=== PATIENT | male | born 1980 | race Caucasian/White ===

== ENCOUNTER 2019-05-03 06:13 | Day surgery (SDC) | payer OTHER ==
[2019-04-28 12:10] VITALS: BMI 30.1
[2019-05-03] MEDS ORDERED: Thrombin 5000 UNITS/5 ML VIAL ONE (08:06)
[2019-05-03] MEDS ORDERED: Midazolam HCl 2 mg/2 ml Vial ONE (08:33)
[2019-05-03] MEDS ORDERED: Fentanyl 250 MCG/5 ML VIAL ONE (08:33)
[2019-05-03] MEDS ORDERED: Tamsulosin HCl 0.4 MG CAP ONE (10:31)
[2019-05-03] MEDS ORDERED: HYDROcodone/Acetaminophen 5/325 mg Tablet ONE (11:20)
--- NOTE | 2019-05-03 12:13 | OP ---
DATE OF PROCEDURE: 05/03/2019 HOT TOP LINER: Jackson Rodríguez PA-C. INDICATION: Pain. DIAGNOSIS: Cervical radiculopathy. PROCEDURE PERFORMED: Anterior cervical diskectomy and fusion, C6-C7. ANESTHESIA: General. DESCRIPTION OF PROCEDURE: The patient was brought into the operating room and placed under general anesthesia. He was placed on table in a supine position. A transverse incision was planned over the lateral aspect of the neck on the right. After prepping and draping and after an appropriate preoperative pause, the incision was created. The soft tissues were swept away from midline. The underlying platysma muscle was identified and incised. A blunt tissue plane anterior to the sternocleidomastoid muscle was used to gain access to the prevertebral space. Self-retaining retractors were placed in the wound for optimal exposure. After confirming the appropriate level with C-arm fluoroscopy, an annulotomy was performed at the C6-C7 disk space. All disk material as well as anterior and posterior osteophytes were removed until the exiting nerve roots were decompressed. A 7-mm lordotic PEEK cage packed with allograft and autograft material was then placed within the interbody space. An anterior cervical plate was then fashioned to the front of spine and secured with a total of 4 screws. Midline and lateral structures were inspected and found to be free from significant trauma. The wound was irrigated. Hemostasis was maintained throughout. The wound was then closed in anatomic layers and a pressure dressing was applied. There were no known procedural complications. Job ID: [id number]
== END 2019-05-03 12:45 | disposition home or self-care (01) ==
LOC: SDC 06:13
PROVIDERS: ATTEND Neurological Surgery
PROC: 0RT30ZZ Resection of Cervical Vertebral Disc, Open Approach (ICD-10-PCS; principal; 2019-05-03)
PROC: 0RG10A0 Fusion of Cervical Vertebral Joint with Interbody Fusion Device, Anterior Approach, Anterior Column, Open Approach (ICD-10-PCS; principal; 2019-05-03)
DX: M54.12 Radiculopathy, cervical region (principal); Z79.899 Other long term (current) drug therapy
CPT/HCPCS: 76000; J0690; J2250; J3010